=== PATIENT | male | born 1985 | race Caucasian/White ===

== ENCOUNTER 2016-07-14 10:39 | Emergency (ER) | payer SELFPAY ==
[~2016-07-14] VITALS: Ht 177.8 cm; Wt 70.3 kg
[2016-07-14 11:06] VITALS: BP 141/85
== END 2016-07-14 13:25 | disposition home or self-care (01) ==
LOC: ER 10:42
DX: S16.1XXA Strain of muscle, fascia and tendon at neck level, initial encounter (principal); S39.012A Strain of muscle, fascia and tendon of lower back, initial encounter; V49.49XA Driver injured in collision with other motor vehicles in traffic accident, initial encounter; Y93.89 Activity, other specified; Y99.8 Other external cause status; Y92.410 Unspecified street and highway as the place of occurrence of the external cause
CPT/HCPCS: 72040; 72110

== ENCOUNTER 2020-10-28 22:31 | Emergency (ER) | payer SELFPAY ==
[~2020-10-28] VITALS: Ht 162.6 cm; Wt 81.6 kg
[2020-10-29] MEDS ORDERED: IOHEXOL 300 MG/ML 100ML BOTTLE IJ ONE (00:21)
[2020-10-29 01:29] LABS: Urine Bacteria NONE SEEN /hpf (None Seen); Urine Blood Negative /uL (Negative); Urine Specific Gravity 1.002 (1.001-1.035); Urine WBC <1 /hpf (0 - 3)
[2020-10-29] MEDS ORDERED: HYDROmorphone HCL 2 MG/ML VL IV ONE (02:00)
[2020-10-29] MEDS ORDERED: ONDANSETRON HCL 4 MG/2 ML VIAL IV ONE (02:00)
[2020-10-29] MEDS ORDERED: KETOROLAC TROMETH 30 MG/ML 1ML VIAL IV ONE (02:00)
[2020-10-29 02:13] VITALS: BP 118/74
== END 2020-10-29 02:31 | disposition short-term general hospital (02) ==
LOC: EDBD 22:31 → ER 22:34
DX: S02.82XA Fracture of other specified skull and facial bones, left side, initial encounter for closed fracture (principal); F10.129 Alcohol abuse with intoxication, unspecified; Y90.9 Presence of alcohol in blood, level not specified; V43.52XA Car driver injured in collision with other type car in traffic accident, initial encounter; Y93.89 Activity, other specified; Y92.410 Unspecified street and highway as the place of occurrence of the external cause; Y99.8 Other external cause status
CPT/HCPCS: 70450; 71260; 72125; 72128; 72131; 74177; 81001; 96374; 96375; 99285; J1170; J1885; J2405; Q9967